=== PATIENT | female | born 1940 | race Hispanic/Latino ===

== ENCOUNTER → 2020-12-21 | Outpatient (CLI) | payer MEDICARE, OTHER | END | disposition home or self-care (01) | LOC: OIH 15:31 | PROVIDERS: ATTEND Internal Medicine | DX: M16.10 Unilateral primary osteoarthritis, unspecified hip (principal); M24.852 Other specific joint derangements of left hip, not elsewhere classified; M48.07 Spinal stenosis, lumbosacral region; I25.84 Coronary atherosclerosis due to calcified coronary lesion; Z90.49 Acquired absence of other specified parts of digestive tract | CPT/HCPCS: 72100; 73502 ==

== ENCOUNTER 2022-09-08 15:49 | Emergency (ER) | payer MEDICARE, OTHER ==
[~2022-09-08] VITALS: Ht 152.4 cm; Wt 68.0 kg
[2022-09-08 16:24] VITALS: BP 181/75
== END 2022-09-08 18:08 | disposition home or self-care (01) ==
LOC: EDH 15:49
DX: S50.311A Abrasion of right elbow, initial encounter (principal); E11.9 Type 2 diabetes mellitus without complications; I10 Essential (primary) hypertension; W01.0XXA Fall on same level from slipping, tripping and stumbling without subsequent striking against object, initial encounter; Y93.89 Activity, other specified; Y92.89 Other specified places as the place of occurrence of the external cause; Y99.8 Other external cause status
CPT/HCPCS: 73030; 73080; 73110; 73564

== ENCOUNTER → 2023-01-20 | Outpatient (CLI) | payer MEDICARE, OTHER | END | disposition home or self-care (01) | LOC: RAH 11:35 | PROVIDERS: ATTEND Internal Medicine | DX: S06.0X9A Concussion with loss of consciousness of unspecified duration, initial encounter (principal); X58.XXXA Exposure to other specified factors, initial encounter; Y93.89 Activity, other specified; Y92.89 Other specified places as the place of occurrence of the external cause; Y99.8 Other external cause status | CPT/HCPCS: 70450 ==

== ENCOUNTER → 2025-01-09 | Outpatient (CLI) | payer MEDICARE, OTHER ==
--- NOTE | 2025-01-09 20:51 | HMCSR ---
APPROVED REPORT EXAM: Two-dimensional and M-mode echocardiogram with Doppler and color Doppler. INDICATION ICD: I50.9 Heart failure, unspecified,R07.9 2D Dimensions RVDd3.5 cmLVEF(%)81.3 (>50%)LA ESV INDEX (BP)32.21 mL/m2 IVSd1.0 (0.7-1.1cm)FS(%)49 % LVDd4.0 (3.8-5.6cm)LA (2D)3.4 (1.6-4.0cm) PWd1.0 (0.7-1.1cm)Ao Root(2D)2.8 (2.0-3.7cm) IVSs1.6 cmLVOT diam1.4 (1.8-2.4cm) LVDs2.0 (2.5-4.0cm) PWs1.8 cm M-Mode Dimensions EPSS0.3 cm LA (MM)4.1 (1.6-4.0cm) Ao Root(MM)3.0 (2.0-3.7cm) Aortic Valve AoV Vmax1.4 m/Héctor Peak GR7.3 mmHgLVOT Vmax0.9 m/s AoV VTI0.3 mAo Mean GR4.1 mmHgLVOT VTI0.25 m JESSICA (VMAX)1.08 cm2AVA (VTI) 1.2 cm2 Mitral Valve MV E Vmax76.3 cm/sDECEL Dkda273 ms MV A Vmax91.8 cm/sP 1/2 T33 ms E/A ratio0.8MVA (PHT)6.7 cm2 TDI E/E' Imrawp19.0E/E' Saptzra62.2 Medial E' Peak V3.63 cm/sLateral E' Peak V4.43 cm/s Pulmonary Valve PV Vmax1.1 m/sPV VTI0.24 mPV Mean GR2.7 mmHg PV Peak GR4.5 mmHg Tricuspid Valve TR Vmax1.8 m/sRAP (EST) 3 jxYqONLZ38.3 mmHg TR Peak GR14.3 mmHg Left Ventricle The left ventricle is normal size. There is normal LV segmental wall motion. There is normal left gael tricular wall thickness. LVEF is >65%. Indeterminate diastolic dysfunction. Right Ventricle The right ventricle is normal size. The right ventricular systolic function is normal. Atria The left atrium size is normal. The right atrium size is normal. Aortic Valve The aortic valve is normal in structure. No aortic regurgitation is present. There is no aortic valvu lar stenosis. Mitral Valve The mitral valve is normal in structure. There is trace of mitral valve regurgitation noted. There is no mitral valve stenosis. Tricuspid Valve The tricuspid valve is normal in structure. There is trace of tricuspid valve regurgitation noted. Pulmonic Valve The pulmonary valve is normal in structure. There is no pulmonic valvular regurgitation. Great Vessels The aortic root is normal in size. The IVC is normal in size and collapses >50% with inspiration. Pericardium There is no pericardial effusion. Other Information Quality : Adequate Conclusion LVEF is >65%.
== END | disposition home or self-care (01) ==
LOC: RAH 12:49
PROVIDERS: ATTEND Internal Medicine
DX: I50.9 Heart failure, unspecified (principal); R07.9 Chest pain, unspecified
CPT/HCPCS: 93306